=== PATIENT | male | born 1990 | race African-American/Black ===

== ENCOUNTER 2018-06-24 18:18 | Emergency (ER) | payer MEDICAID ==
[~2018-06-24] VITALS: Ht 175.3 cm; Wt 89.8 kg
[2018-06-24 19:13] LABS: Basophils # (auto) 0.1 uL; Basophils % (auto) 0.8 % (0.0-2.0); Eosinophils # (auto) 0.1 uL; Eosinophils % (auto) 0.9 % (0.0-7.0); Hematocrit 45.7 % (41.0-53.0); Hemoglobin 15.1 g/dL (13.5-17.5); Lymphocytes % (auto) 21.5 % (10.0-50.0); Mean Corpuscular Hemoglobin 30.7 pg (28.0-32.0); Mean Corpuscular Volume 93.1 fL (80.0-100.0); Monocytes % (auto) 10.9 % (0.0-12.0); Neutrophils # (auto) 6.1 uL; Neutrophils % (auto) 65.9 % (37.0-80.0); Nucleated Red Blood Cells % 0.2 %; Platelet Count (auto) 315 10^3/uL (140-450); Red Blood Cells 4.91 10^6/uL (4.5-5.90); Red Cell Distribution Width 13.4 % (11.8-14.3); White Blood Cell 9.3 10^3/uL (4.4-10.8)
[2018-06-24 19:26] LABS: Alanine Aminotransferase 27 U/L (16-61); Albumin 4.1 g/dL (3.4-5.0); Anion Gap 6 (5-15); Aspartate Aminotransferase 27 U/L (15-37); BUN/Creatinine Ratio 9.4; Blood Urea Nitrogen 9 mg/dL (7-18); Calcium 9.2 mg/dL (8.5-10.1); Carbon Dioxide 29 mmol/L (21-32); Chloride 105 mmol/L (98-107); GFR African American 121 mL/min; GFR Non-African American 100 mL/min; Glucose 84 mg/dL (74-106); Potassium 4.5 mmol/L (3.5-5.1); Salicylate < 1.7 mg/dL (2.8-20.0); Sodium 140 mmol/L (136-145)
[2018-06-24 19:29] LABS: Alkaline Phosphatase 94 U/L (45-117); Bilirubin, Total 0.5 mg/dL (0.2-1.0); Blood Alcohol < 3.0 mg/dL (0-5); Total Protein 7.8 g/dL (6.4-8.2)
[2018-06-24 19:38] LABS: Acetaminophen < 2.0 ug/mL (10-30)
[2018-06-24 20:00] VITALS: BP 134/90
== END 2018-06-24 21:12 | disposition home or self-care (01) ==
LOC: EDUNIT# 18:18 → EDBD 18:18 → ER 18:44
DX: F41.9 Anxiety disorder, unspecified (principal); M79.18 Myalgia, other site; F32.9 Major depressive disorder, single episode, unspecified; F20.9 Schizophrenia, unspecified
CPT/HCPCS: 36415; 80053; 80320; 80329; 85025

== ENCOUNTER 2018-06-25 09:52 | Emergency (ER) | payer MEDICAID ==
[~2018-06-25] VITALS: Ht 175.3 cm; Wt 74.8 kg
[2018-06-25 10:21] VITALS: BP 111/70
== END 2018-06-25 12:57 | disposition home or self-care (01) ==
LOC: ER 09:54
DX: R52 Pain, unspecified (principal); R53.83 Other fatigue; F41.9 Anxiety disorder, unspecified; F32.9 Major depressive disorder, single episode, unspecified; F20.9 Schizophrenia, unspecified

== ENCOUNTER 2018-06-26 03:24 | Emergency (ER) | payer MEDICAID ==
[~2018-06-26] VITALS: Ht 175.3 cm; Wt 64.9 kg
[2018-06-26 08:45] LABS: Urine Bacteria NONE SEEN /hpf (None Seen); Urine Blood Negative /uL (Negative); Urine Specific Gravity 1.013 (1.001-1.035); Urine WBC 1 /hpf (0 - 3)
[2018-06-26 09:19] VITALS: BP 120/90
== END 2018-06-26 09:43 | disposition home or self-care (01) ==
LOC: EDBD 03:24 → ER 03:26
DX: R11.2 Nausea with vomiting, unspecified (principal); F17.210 Nicotine dependence, cigarettes, uncomplicated
CPT/HCPCS: 81001